=== PATIENT | female | born 1940 | race African-American/Black ===

== ENCOUNTER 2022-09-22 01:10 | Inpatient (IN) | payer OTHER ==
[2022-09-22] VITALS (7 sets, daily range): BP systolic 140–150; BP diastolic 62–80; PULSE 64–71; RESP 16–18; TEMP 96.7–97.4; O2SAT 96–98
[~2022-09-22] VITALS: Ht 162.6 cm; Wt 88.9 kg
[2022-09-22 03:16] LABS: BASOPHILS # (AUTO) 0.1 K/uL (0.00-0.22); BASOPHILS % (AUTO) 1.9 % (0.0-2.0); EOSINOPHILS # (AUTO) 0.3 K/uL (0-0.4); EOSINOPHILS % (AUTO) 4.1 % (0.0-4.0); HEMATOCRIT 26.6 % (36-48); HEMOGLOBIN 9.3 g/dL (12.0-16.0); LYMPHOCYTES # (AUTO) 2.3 K/uL (2.5-16.5); LYMPHOCYTES % (AUTO) 29.8 % (20.5-51.1); MEAN CORPUSCULAR HEMOGLOBIN 28 pg (27-31); MEAN CORPUSCULAR HGB CONC 35 g/dL (33-37); MEAN CORPUSCULAR VOLUME 78.8 fL (80-94); MONOCYTES % (AUTO) 12.7 % (1.7-9.3); NEUTROPHILS # (AUTO) 3.9 K/uL (1.8-7.7); NEUTROPHILS % (AUTO) 51.5 % (42.2-75.2); PLATELET COUNT (AUTO) 335 K/uL (140-450); RED BLOOD CELL COUNT(AUTO) 3.38 MIL/uL (4.20-5.40); RED CELL DISTRIBUTION WIDTH 12.9 % (11.6-13.7); WHITE BLOOD COUNT (AUTO) 7.6 K/uL (4.8-10.8)
[2022-09-22 03:18] LABS: ANION GAP 11.3 (8-16); CALCIUM 8.3 mg/dL (8.5-10.1); CARBON DIOXIDE 25.2 mmol/L (21-32); CHLORIDE 92 mmol/L (98-107); CREATININE 0.7 mg/dL (0.6-1.3); GLUCOSE 105 mg/dL (74-106); POTASSIUM 4.5 mmol/L (3.5-5.1); SODIUM SERUM 124 mmol/L (136-145); UREA NITROGEN, BLOOD 18 mg/dL (7-18)
[2022-09-22 03:19] LABS: MAGNESIUM 1.9 mg/dL (1.8-2.4); PHOSPHORUS 3.6 mg/dL (2.5-4.9)
[2022-09-22] MEDS ORDERED: NACL 0.9% 1,000 ML IV ONE (05:10)
[2022-09-22 07:14] LABS: BILIRUBIN,URINE NEGATIVE (NEGATIVE); BLOOD, URINE TRACE-I (NEGATIVE); COLOR,URINE YELLOW (YELLOW); LEUKOCYTE ESTERASE ,URINE 1+ (NEGATIVE); NITRITE, URINE NEGATIVE (NEGATIVE); PH,URINE 6.5 (5.0-9.0); PROTEIN,URINE NEGATIVE (NEGATIVE); UGLUCOSE NEGATIVE (NEGATIVE); UROBILINOGEN,URINE 0.2 EU/dL (0.2 - 1)
[2022-09-22 07:17] LABS: APPEARANCE,URINE HAZY (CLEAR)
[2022-09-22 07:25] LABS: BACTERIA,URINE >30 (MANY) /HPF (None Seen); SQUAMOUS EPITHELIAL CELL,UR 0-3 (FEW) /LPF (0-3 (FEW))
[2022-09-22] MEDS ORDERED: ONDANSETRON 4 MG/2 ML VIAL IM/IVP PRN (08:15)
[2022-09-22] MEDS ORDERED: HYDROcodone/APAP 7.5/325 MG 1 TAB PO PRN (08:15)
[2022-09-22] MEDS ORDERED: POTASSIUM CHLORIDE 10 MEQ TABER PO PRN (08:15)
[2022-09-22] MEDS ORDERED: guaiFENesin DM 200/20 MG-10 ML 10 ML UDC PO PRN (08:15)
[2022-09-22] MEDS ORDERED: DOCUSATE SODIUM 100 MG GELCAP PO PRN (08:15)
[2022-09-22 08:41] LABS: INR 0.92 (0.8-1.2); PARTIAL THROMBOPLASTIN TIME 28.3 secs (22-35.6); PROTHROMBIN TIME 9.7 secs (10.8-13.4)
[2022-09-22 08:46] LABS: LACTIC ACID 1.1 mmol/L (0.4-2.0)
[2022-09-22 08:52] LABS: FREE T4 (FREE THYROXINE) 0.76 ng/dL (0.76-1.46); MAGNESIUM 1.9 mg/dL (1.8-2.4); PHOSPHORUS 3.4 mg/dL (2.5-4.9); THYROID STIMULATING HORMONE 3.27 uIU/mL (0.34-3.74)
[2022-09-22] MEDS ORDERED: cefTRIAXone 1,000 MG VIAL ONE (10:23)
[2022-09-22] MEDS: NACL 0.9% 1,000 ML IV SCH ×2 (10:36→17:35)
[2022-09-22] MEDS: PANTOPRAZOLE 40 MG TABEC PO SCH (10:36)
[2022-09-22 11:49] LABS: LACTIC ACID 1.1 mmol/L (0.4-2.0)
[2022-09-22] MEDS ORDERED: SODIUM PHOSPHATE 118 ML ENEM RC SCH (18:00)
[2022-09-22] MEDS: ZOLPIDEM 5 MG TAB PO PRN (21:06)
[2022-09-22] MEDS: ACETAMINOPHEN 325 MG TAB PO PRN (21:06)
[2022-09-23] VITALS (9 sets, daily range): BP systolic 138–156; BP diastolic 59–75; PULSE 65–73; RESP 16–18; TEMP 97–98.7; O2SAT 96–98
[2022-09-23] MEDS: NACL 0.9% 1,000 ML IV SCH ×2 (03:44→16:07)
[2022-09-23 06:23] LABS: BASOPHILS # (AUTO) 0.1 K/uL (0.00-0.22); BASOPHILS % (AUTO) 0.8 % (0.0-2.0); EOSINOPHILS # (AUTO) 0.2 K/uL (0-0.4); EOSINOPHILS % (AUTO) 3.2 % (0.0-4.0); HEMATOCRIT 23.7 % (36-48); HEMOGLOBIN 8.3 g/dL (12.0-16.0); LYMPHOCYTES # (AUTO) 1.7 K/uL (2.5-16.5); LYMPHOCYTES % (AUTO) 22.6 % (20.5-51.1); MEAN CORPUSCULAR HEMOGLOBIN 28 pg (27-31); MEAN CORPUSCULAR HGB CONC 35 g/dL (33-37); MEAN CORPUSCULAR VOLUME 79.5 fL (80-94); MONOCYTES # (AUTO) 0.9 K/uL (0.8-1.0); MONOCYTES % (AUTO) 11.9 % (1.7-9.3); NEUTROPHILS # (AUTO) 4.6 K/uL (1.8-7.7); NEUTROPHILS % (AUTO) 61.5 % (42.2-75.2); PLATELET COUNT (AUTO) 288 K/uL (140-450); RED BLOOD CELL COUNT(AUTO) 2.97 MIL/uL (4.20-5.40); RED CELL DISTRIBUTION WIDTH 13.1 % (11.6-13.7); WHITE BLOOD COUNT (AUTO) 7.5 K/uL (4.8-10.8)
[2022-09-23 06:37] LABS: ANION GAP 10.5 (8-16); CALCIUM 7.5 mg/dL (8.5-10.1); CHLORIDE 95 mmol/L (98-107); CREATININE 0.7 mg/dL (0.6-1.3); GLUCOSE 82 mg/dL (74-106); POTASSIUM 4.5 mmol/L (3.5-5.1); SODIUM SERUM 125 mmol/L (136-145); UREA NITROGEN, BLOOD 13 mg/dL (7-18)
[2022-09-23] MEDS: PANTOPRAZOLE 40 MG TABEC PO SCH (09:00)
[2022-09-23 09:06] LABS: T4 (THYROXINE) 6.6 ug/dL (4.5-12.0)
[2022-09-23] MEDS ORDERED: SODIUM PHOSPHATE 118 ML ENEM RC PRN (09:25)
[2022-09-23] MEDS ORDERED: MAGNESIUM HYDROXIDE 2400 MG/30 ML UDC PO PRN (09:25)
[2022-09-23] MEDS ORDERED: MELATONIN 3 MG TAB PO PRN (09:25)
[2022-09-23] MEDS ORDERED: AMLO10TA PO (10:02)
[2022-09-23] MEDS ORDERED: ATEN25TA2 PO (10:02)
[2022-09-23] MEDS ORDERED: MELA1TAB32 PO (10:14)
[2022-09-23] MEDS ORDERED: CRAN450T5 PO (10:14)
[2022-09-23] MEDS ORDERED: NA P133E RC (10:14)
[2022-09-23] MEDS ORDERED: LOSA50TA66 PO (10:14)
[2022-09-23] MEDS ORDERED: SODI100076 PO (10:14)
[2022-09-23] MEDS ORDERED: MAGN400S60 PO (10:14)
[2022-09-23] MEDS: ZOLPIDEM 5 MG TAB PO PRN (21:03)
[2022-09-23] MEDS: ACETAMINOPHEN 325 MG TAB PO PRN (21:03)
[2022-09-24] VITALS (7 sets, daily range): BP systolic 146–159; BP diastolic 59–65; PULSE 63–72; RESP 17–20; TEMP 36.5; O2SAT 95–100
[2022-09-24] MEDS: NACL 0.9% 1,000 ML IV SCH ×4 (00:35→22:55)
[2022-09-24 06:59] LABS: BASOPHILS # (AUTO) 0.1 K/uL (0.00-0.22); BASOPHILS % (AUTO) 1.2 % (0.0-2.0); EOSINOPHILS # (AUTO) 0.2 K/uL (0-0.4); EOSINOPHILS % (AUTO) 3.8 % (0.0-4.0); HEMOGLOBIN 8.4 g/dL (12.0-16.0); LYMPHOCYTES # (AUTO) 1.9 K/uL (2.5-16.5); LYMPHOCYTES % (AUTO) 28.5 % (20.5-51.1); MEAN CORPUSCULAR HEMOGLOBIN 28 pg (27-31); MEAN CORPUSCULAR HGB CONC 35 g/dL (33-37); MEAN CORPUSCULAR VOLUME 80.2 fL (80-94); MONOCYTES # (AUTO) 0.9 K/uL (0.8-1.0); MONOCYTES % (AUTO) 13.1 % (1.7-9.3); NEUTROPHILS # (AUTO) 3.5 K/uL (1.8-7.7); NEUTROPHILS % (AUTO) 53.4 % (42.2-75.2); PLATELET COUNT (AUTO) 267 K/uL (140-450); RED BLOOD CELL COUNT(AUTO) 2.99 MIL/uL (4.20-5.40); RED CELL DISTRIBUTION WIDTH 13.5 % (11.6-13.7); WHITE BLOOD COUNT (AUTO) 6.5 K/uL (4.8-10.8)
[2022-09-24 07:04] LABS: ANION GAP 11.3 (8-16); CALCIUM 7.8 mg/dL (8.5-10.1); CARBON DIOXIDE 25.9 mmol/L (21-32); CHLORIDE 97 mmol/L (98-107); CREATININE 0.6 mg/dL (0.6-1.3); GLUCOSE 94 mg/dL (74-106); POTASSIUM 4.2 mmol/L (3.5-5.1); SODIUM SERUM 130 mmol/L (136-145); UREA NITROGEN, BLOOD 9 mg/dL (7-18)
[2022-09-24] MEDS: LOSARTAN 50 MG TAB PO SCH (09:22)
[2022-09-24] MEDS: amLODIPine 5 MG TAB PO SCH (09:23)
[2022-09-24] MEDS: SODIUM CHLORIDE 1 GM TAB PO SCH (09:23)
[2022-09-24] MEDS: atenoloL 25 MG TAB PO SCH (09:23)
[2022-09-24] MEDS: PANTOPRAZOLE 40 MG TABEC PO SCH (09:24)
[2022-09-24] MEDS ORDERED: POLYVINYL ALCOHOL 1.4% OP 15 ML SOL OP PRN (10:20)
[2022-09-24] MEDS: ACETAMINOPHEN 325 MG TAB PO PRN (20:25)
[2022-09-24] MEDS: ZOLPIDEM 5 MG TAB PO PRN (20:25)
[2022-09-25] VITALS: BP 148/60; PULSE 65; PULSE 66; RESP 18; TEMP 98.7; O2SAT 95
[2022-09-25 04:00] VITALS: BP 140/56; PULSE 60; PULSE 61; PULSE 66; RESP 18; TEMP 97.8; O2SAT 96
[2022-09-25 06:39] LABS: BASOPHILS # (AUTO) 0.1 K/uL (0.00-0.22); BASOPHILS % (AUTO) 0.9 % (0.0-2.0); EOSINOPHILS # (AUTO) 0.3 K/uL (0-0.4); EOSINOPHILS % (AUTO) 4.1 % (0.0-4.0); HEMOGLOBIN 8.3 g/dL (12.0-16.0); LYMPHOCYTES % (AUTO) 28.8 % (20.5-51.1); MEAN CORPUSCULAR HEMOGLOBIN 28 pg (27-31); MEAN CORPUSCULAR HGB CONC 35 g/dL (33-37); MEAN CORPUSCULAR VOLUME 79.7 fL (80-94); MONOCYTES # (AUTO) 0.9 K/uL (0.8-1.0); MONOCYTES % (AUTO) 13.1 % (1.7-9.3); NEUTROPHILS # (AUTO) 3.7 K/uL (1.8-7.7); NEUTROPHILS % (AUTO) 53.1 % (42.2-75.2); PLATELET COUNT (AUTO) 271 K/uL (140-450); RED BLOOD CELL COUNT(AUTO) 3.01 MIL/uL (4.20-5.40); RED CELL DISTRIBUTION WIDTH 13.3 % (11.6-13.7); WHITE BLOOD COUNT (AUTO) 6.9 K/uL (4.8-10.8)
[2022-09-25 07:03] LABS: ANION GAP 12.1 (8-16); CALCIUM 7.7 mg/dL (8.5-10.1); CARBON DIOXIDE 23.2 mmol/L (21-32); CHLORIDE 96 mmol/L (98-107); CREATININE 0.6 mg/dL (0.6-1.3); GLUCOSE 81 mg/dL (74-106); POTASSIUM 4.3 mmol/L (3.5-5.1); SODIUM SERUM 127 mmol/L (136-145); UREA NITROGEN, BLOOD 10 mg/dL (7-18)
[2022-09-25 08:00] VITALS: BP 112/87; PULSE 59; PULSE 68; RESP 18; TEMP 97.6; TEMP 97.8; O2SAT 96
[2022-09-25 08:33] VITALS: PULSE 67; RESP 16; O2SAT 96
[2022-09-25] MEDS: amLODIPine 5 MG TAB PO SCH (08:41)
[2022-09-25] MEDS: PANTOPRAZOLE 40 MG TABEC PO SCH (08:42)
[2022-09-25] MEDS: atenoloL 25 MG TAB PO SCH (08:43)
[2022-09-25] MEDS: SODIUM CHLORIDE 1 GM TAB PO SCH (08:44)
[2022-09-25] MEDS: LOSARTAN 50 MG TAB PO SCH (08:45)
[2022-09-25 12:00] VITALS: BP 158/61; PULSE 59; PULSE 68; RESP 18; TEMP 97.6; O2SAT 98
[2022-09-25] MEDS: NACL 0.9% 1,000 ML IV SCH (12:17)
[2022-09-25] MEDS ORDERED: SODIUM PHOSPHATE 118 ML ENEM RC SCH (14:50)
[2022-09-26] MEDS ORDERED: FUROSEMIDE 20 MG TAB PO SCH (09:00)
== END 2022-09-25 16:25 | DRG 640 ==
LOC: MED 01:10 → MTU 07:54
PROVIDERS: ADMIT Family Medicine; ATTEND Family Medicine
DX: E87.1 Hypo-osmolality and hyponatremia (principal); G93.41 Metabolic encephalopathy; R53.2 Functional quadriplegia; N39.0 Urinary tract infection, site not specified; D63.8 Anemia in other chronic diseases classified elsewhere; I10 Essential (primary) hypertension; Z88.1 Allergy status to other antibiotic agents; Z88.8 Allergy status to other drugs, medicaments and biological substances
CPT/HCPCS: 36415; 71045; 80048; 81001; 82150; 83036; 83605; 83690; 83735; 83880; 83935; 84100; 84300; 84436; 84439; 84443; 84479; 85025; 85610; 85730; 87040; 87081; 87086; 93005; 96361; 96374; 99285; J0696; J7060

== ENCOUNTER 2022-09-29 06:00 | Inpatient (IN) | payer OTHER ==
[~2022-09-29] VITALS: Ht 162.6 cm; Wt 95.3 kg
[2022-09-29] VITALS (9 sets, daily range): BP systolic 145–153; BP diastolic 65–72; PULSE 52–72; RESP 16–18; TEMP 96.9–97; O2SAT 97–100
[~2022-09-29 06:00] MED LIST: AMLO10TA PO; ATEN25TA2 PO; CRAN450T5 PO; LOSA50TA66 PO; MAGN400S60 PO; MELA1TAB32 PO; NA P133E RC; SODI100076 PO
[2022-09-29] MEDS ORDERED: NACL 0.9% 1,000 ML IV ONE ×2 (06:15→09:15)
[2022-09-29 06:57] LABS: BASOPHILS # (AUTO) 0.1 K/uL (0.00-0.22); EOSINOPHILS # (AUTO) 0.3 K/uL (0-0.4); EOSINOPHILS % (AUTO) 3.3 % (0.0-4.0); HEMATOCRIT 27.1 % (36-48); HEMOGLOBIN 9.4 g/dL (12.0-16.0); LYMPHOCYTES # (AUTO) 2.1 K/uL (2.5-16.5); LYMPHOCYTES % (AUTO) 25.8 % (20.5-51.1); MEAN CORPUSCULAR HEMOGLOBIN 27 pg (27-31); MEAN CORPUSCULAR HGB CONC 35 g/dL (33-37); MEAN CORPUSCULAR VOLUME 77.9 fL (80-94); MONOCYTES # (AUTO) 0.7 K/uL (0.8-1.0); MONOCYTES % (AUTO) 8.2 % (1.7-9.3); NEUTROPHILS # (AUTO) 5.1 K/uL (1.8-7.7); NEUTROPHILS % (AUTO) 61.7 % (42.2-75.2); PLATELET COUNT (AUTO) 312 K/uL (140-450); RED BLOOD CELL COUNT(AUTO) 3.48 MIL/uL (4.20-5.40); RED CELL DISTRIBUTION WIDTH 13.5 % (11.6-13.7); WHITE BLOOD COUNT (AUTO) 8.3 K/uL (4.8-10.8)
[2022-09-29 07:18] LABS: ALANINE AMINOTRANSFERASE 21 U/L (12-78); ALBUMIN 3.2 g/dL (3.4-5.0); ALKALINE PHOSPHATASE 91 U/L (50-136); ANION GAP 10.8 (8-16); ASPARTATE AMINOTRANSFERASE 21 U/L (15-37); CALCIUM 8.3 mg/dL (8.5-10.1); CARBON DIOXIDE 25.6 mmol/L (21-32); CHLORIDE 88 mmol/L (98-107); CREATININE 0.7 mg/dL (0.6-1.3); GLUCOSE 96 mg/dL (74-106); POTASSIUM 4.4 mmol/L (3.5-5.1); TOTAL BILIRUBIN 0.3 mg/dL (0.0-1.0); TOTAL PROTEIN, SERUM 6.9 g/dL (6.4-8.2); UREA NITROGEN, BLOOD 12 mg/dL (7-18)
[2022-09-29 07:20] LABS: SODIUM SERUM 120 mmol/L (136-145)
[2022-09-29 08:12] LABS: APPEARANCE,URINE CLEAR (CLEAR); BILIRUBIN,URINE NEGATIVE (NEGATIVE); BLOOD, URINE NEGATIVE (NEGATIVE); COLOR,URINE YELLOW (YELLOW); LEUKOCYTE ESTERASE ,URINE NEGATIVE (NEGATIVE); NITRITE, URINE NEGATIVE (NEGATIVE); PH,URINE 7.5 (5.0-9.0); PROTEIN,URINE TRACE (NEGATIVE); UGLUCOSE NEGATIVE (NEGATIVE); UROBILINOGEN,URINE 0.2 EU/dL (0.2 - 1)
[2022-09-29] MEDS ORDERED: ATEN25TA2 PO (08:23)
[2022-09-29] MEDS ORDERED: CRAN450T5 PO (08:23)
[2022-09-29] MEDS ORDERED: [UNRECOGNIZED DRUG - CODE] PO (08:23)
[2022-09-29] MEDS ORDERED: AMLO10TA88 PO (08:23)
[2022-09-29 12:33] LABS: FREE T4 (FREE THYROXINE) 0.81 ng/dL (0.76-1.46); THYROID STIMULATING HORMONE 3.3 uIU/mL (0.34-3.74)
[2022-09-29] MEDS ORDERED: SODIUM PHOSPHATE 118 ML ENEM RC PRN (13:45)
[2022-09-29] MEDS ORDERED: MAGNESIUM HYDROXIDE 2400 MG/30 ML UDC PO PRN (13:45)
[2022-09-29] MEDS ORDERED: POTASSIUM CHLORIDE 10 MEQ TABER PO PRN (13:50)
[2022-09-29] MEDS ORDERED: ONDANSETRON 4 MG/2 ML VIAL IVP PRN (13:50)
[2022-09-29] MEDS ORDERED: ACETAMINOPHEN 325 MG TAB PO PRN (13:50)
[2022-09-29] MEDS ORDERED: MAG SULF 2000 MG/WATER PREMIX 50 ML IV PRN (13:50)
[2022-09-29 14:18] LABS: INR 0.93 (0.8-1.2); PARTIAL THROMBOPLASTIN TIME 29.7 secs (22-35.6); PROTHROMBIN TIME 9.8 secs (10.8-13.4)
[2022-09-29 14:23] LABS: LACTIC ACID 0.9 mmol/L (0.4-2.0)
[2022-09-29 14:28] LABS: CHOL/HDL RATIO 4.1 (1-4.5); FREE T4 (FREE THYROXINE) 0.84 ng/dL (0.76-1.46); MAGNESIUM 1.7 mg/dL (1.8-2.4); PHOSPHORUS 3.9 mg/dL (2.5-4.9); THYROID STIMULATING HORMONE 3.21 uIU/mL (0.34-3.74)
[2022-09-29] MEDS: NACL 0.9% 1,000 ML IV SCH (14:29)
[2022-09-29] MEDS: PYRIDOXINE 50 MG TAB PO SCH (16:52)
[2022-09-29] MEDS: MELATONIN 3 MG TAB PO SCH (16:53)
[2022-09-29] MEDS ORDERED: NON-FORMULARY ITEM (Melatonin/Pyridoxine HCl (B6) (Melatonin 3 mg Tablet) 1 TAB) PO SCH (17:00)
[2022-09-29] MEDS: HYDROcodone/APAP 7.5/325 MG 1 TAB PO PRN (18:05)
[2022-09-29] MEDS: DOCUSATE SODIUM 100 MG GELCAP PO SCH (23:59)
[2022-09-30] MEDS: NACL 0.9% 1,000 ML IV SCH (03:12)
[2022-09-30 04:00] VITALS: PULSE 59
[2022-09-30 06:15] LABS: BASOPHILS # (AUTO) 0.1 K/uL (0.00-0.22); EOSINOPHILS # (AUTO) 0.3 K/uL (0-0.4); EOSINOPHILS % (AUTO) 4.2 % (0.0-4.0); HEMATOCRIT 25.4 % (36-48); HEMOGLOBIN 8.9 g/dL (12.0-16.0); LYMPHOCYTES # (AUTO) 2.3 K/uL (2.5-16.5); LYMPHOCYTES % (AUTO) 30.9 % (20.5-51.1); MEAN CORPUSCULAR HEMOGLOBIN 28 pg (27-31); MEAN CORPUSCULAR HGB CONC 35 g/dL (33-37); MEAN CORPUSCULAR VOLUME 79.3 fL (80-94); MONOCYTES # (AUTO) 0.6 K/uL (0.8-1.0); MONOCYTES % (AUTO) 7.8 % (1.7-9.3); NEUTROPHILS # (AUTO) 4.1 K/uL (1.8-7.7); NEUTROPHILS % (AUTO) 56.1 % (42.2-75.2); PLATELET COUNT (AUTO) 289 K/uL (140-450); RED CELL DISTRIBUTION WIDTH 13.6 % (11.6-13.7); WHITE BLOOD COUNT (AUTO) 7.4 K/uL (4.8-10.8)
[2022-09-30 06:26] LABS: MAGNESIUM 2.3 mg/dL (1.8-2.4); PHOSPHORUS 3.9 mg/dL (2.5-4.9)
[2022-09-30 06:30] LABS: ALANINE AMINOTRANSFERASE 18 U/L (12-78); ALBUMIN 3.1 g/dL (3.4-5.0); ALKALINE PHOSPHATASE 84 U/L (50-136); ANION GAP 7.8 (8-16); ASPARTATE AMINOTRANSFERASE 18 U/L (15-37); CALCIUM 7.8 mg/dL (8.5-10.1); CARBON DIOXIDE 26.6 mmol/L (21-32); CHLORIDE 90 mmol/L (98-107); CREATININE 0.7 mg/dL (0.6-1.3); GLUCOSE 80 mg/dL (74-106); POTASSIUM 4.4 mmol/L (3.5-5.1); TOTAL BILIRUBIN 0.4 mg/dL (0.0-1.0); TOTAL PROTEIN, SERUM 6.4 g/dL (6.4-8.2); UREA NITROGEN, BLOOD 9 mg/dL (7-18)
[2022-09-30 06:31] LABS: SODIUM SERUM 120 mmol/L (136-145)
[2022-09-30] MEDS ORDERED: NACL 3% 500 ML IV ONE ×3 (06:40→20:00)
[2022-09-30 08:00] VITALS: BP 171/73; PULSE 54; PULSE 60; RESP 17; TEMP 98.8; O2SAT 97
[2022-09-30 08:45] VITALS: BP 147/73; PULSE 60; RESP 18; TEMP 98.2; O2SAT 96
[2022-09-30] MEDS: atenoloL 25 MG TAB PO SCH (08:51)
[2022-09-30] MEDS: DOCUSATE SODIUM 100 MG GELCAP PO SCH ×2 (08:51→21:19)
[2022-09-30] MEDS: amLODIPine 5 MG TAB PO SCH (08:52)
[2022-09-30] MEDS: LOSARTAN 50 MG TAB PO SCH (08:52)
[2022-09-30] MEDS: ENOXAPARIN 40 MG/0.4 ML SYR SUBQ SCH (08:55)
[2022-09-30] MEDS ORDERED: NON-FORMULARY ITEM (Cranberry Fruit (Cranberry) 1 TAB) PO SCH (09:00)
[2022-09-30] MEDS ORDERED: NON-FORMULARY ITEM (Amlodipine Besylate 1 TAB) PO SCH (09:00)
[2022-09-30] MEDS: PANTOPRAZOLE 40 MG INJ VIAL IVP SCH (09:22)
[2022-09-30 12:00] VITALS: BP 155/55; PULSE 59; PULSE 60; RESP 18; TEMP 98.2; O2SAT 99
[2022-09-30 16:00] VITALS: BP 153/63; PULSE 59; PULSE 60; RESP 18; TEMP 98.1; O2SAT 97
[2022-09-30] MEDS: MELATONIN 3 MG TAB PO SCH (17:41)
[2022-09-30] MEDS: PYRIDOXINE 50 MG TAB PO SCH (17:42)
[2022-09-30 20:00] VITALS: BP 149/61; PULSE 65; PULSE 66; RESP 19; TEMP 98.7; O2SAT 98
[2022-10-01] VITALS: BP 140/56; PULSE 62; PULSE 63; RESP 19; TEMP 98.3; O2SAT 98
[2022-10-01] MEDS: HYDROcodone/APAP 7.5/325 MG 1 TAB PO PRN (01:00)
[2022-10-01 04:00] VITALS: BP 145/61; PULSE 61; PULSE 66; RESP 18; TEMP 97.8; O2SAT 98
[2022-10-01 05:22] LABS: CHLORIDE,URINE RANDOM 72 mmol/L (110-250); CREATININE,URINE RANDOM 15 mg/dL (30-125); POTASSIUM,URINE RANDOM 9 mmol/L (12-75); URINE SODIUM, RANDOM 64 mmol/l (40-220)
[2022-10-01 05:40] LABS: BASOPHILS # (AUTO) 0.1 K/uL (0.00-0.22); EOSINOPHILS # (AUTO) 0.2 K/uL (0-0.4); EOSINOPHILS % (AUTO) 3.2 % (0.0-4.0); HEMATOCRIT 22.7 % (36-48); HEMOGLOBIN 7.8 g/dL (12.0-16.0); LYMPHOCYTES # (AUTO) 2.4 K/uL (2.5-16.5); LYMPHOCYTES % (AUTO) 34.1 % (20.5-51.1); MEAN CORPUSCULAR HEMOGLOBIN 28 pg (27-31); MEAN CORPUSCULAR HGB CONC 35 g/dL (33-37); MONOCYTES # (AUTO) 0.7 K/uL (0.8-1.0); MONOCYTES % (AUTO) 10.1 % (1.7-9.3); NEUTROPHILS # (AUTO) 3.6 K/uL (1.8-7.7); NEUTROPHILS % (AUTO) 51.6 % (42.2-75.2); PLATELET COUNT (AUTO) 306 K/uL (140-450); RED BLOOD CELL COUNT(AUTO) 2.83 MIL/uL (4.20-5.40); RED CELL DISTRIBUTION WIDTH 13.2 % (11.6-13.7)
[2022-10-01 05:50] LABS: ALANINE AMINOTRANSFERASE 16 U/L (12-78); ALKALINE PHOSPHATASE 80 U/L (50-136); ANION GAP 10.1 (8-16); ASPARTATE AMINOTRANSFERASE 17 U/L (15-37); CALCIUM 7.8 mg/dL (8.5-10.1); CARBON DIOXIDE 23.3 mmol/L (21-32); CHLORIDE 96 mmol/L (98-107); CREATININE 0.7 mg/dL (0.6-1.3); GLUCOSE 81 mg/dL (74-106); POTASSIUM 4.4 mmol/L (3.5-5.1); SODIUM SERUM 125 mmol/L (136-145); TOTAL BILIRUBIN 0.3 mg/dL (0.0-1.0); TOTAL PROTEIN, SERUM 6.3 g/dL (6.4-8.2); UREA NITROGEN, BLOOD 11 mg/dL (7-18)
[2022-10-01 06:02] LABS: PHOSPHORUS 3.6 mg/dL (2.5-4.9)
[2022-10-01 08:00] VITALS: BP 109/58; PULSE 60; PULSE 69; RESP 18; RESP 20; TEMP 98.2; O2SAT 99
[2022-10-01] MEDS ORDERED: NACL 3% 500 ML IV SCH (08:50)
[2022-10-01] MEDS: PANTOPRAZOLE 40 MG INJ VIAL IVP SCH (08:53)
[2022-10-01] MEDS: atenoloL 25 MG TAB PO SCH (09:00)
[2022-10-01] MEDS: LOSARTAN 50 MG TAB PO SCH (09:00)
[2022-10-01] MEDS: DOCUSATE SODIUM 100 MG GELCAP PO SCH ×2 (09:00→20:26)
[2022-10-01] MEDS: amLODIPine 5 MG TAB PO SCH (09:00)
[2022-10-01] MEDS: ENOXAPARIN 40 MG/0.4 ML SYR SUBQ SCH (09:14)
[2022-10-01 12:00] VITALS: BP 133/44; PULSE 62; RESP 16; TEMP 97.1; O2SAT 97
[2022-10-01 16:00] VITALS: BP 149/56; PULSE 66; PULSE 71; RESP 18; TEMP 98.4; O2SAT 100
[2022-10-01] MEDS: PYRIDOXINE 50 MG TAB PO SCH (17:39)
[2022-10-01] MEDS: MELATONIN 3 MG TAB PO SCH (17:39)
[2022-10-01 20:00] VITALS: BP 141/42; PULSE 74; RESP 17; TEMP 98.8; O2SAT 95
[2022-10-01] MEDS ORDERED: NACL 3% 500 ML IV ONE (21:55)
[2022-10-02] VITALS (7 sets, daily range): BP systolic 136–159; BP diastolic 53–65; PULSE 63–72; RESP 16–19; TEMP 97.5–98.9; O2SAT 95–98
[2022-10-02 06:46] LABS: BASOPHILS # (AUTO) 0.1 K/uL (0.00-0.22); BASOPHILS % (AUTO) 1.3 % (0.0-2.0); EOSINOPHILS # (AUTO) 0.2 K/uL (0-0.4); EOSINOPHILS % (AUTO) 3.1 % (0.0-4.0); HEMOGLOBIN 7.9 g/dL (12.0-16.0); LYMPHOCYTES # (AUTO) 1.9 K/uL (2.5-16.5); LYMPHOCYTES % (AUTO) 33.7 % (20.5-51.1); MEAN CORPUSCULAR HEMOGLOBIN 27 pg (27-31); MEAN CORPUSCULAR HGB CONC 34 g/dL (33-37); MEAN CORPUSCULAR VOLUME 80.1 fL (80-94); MONOCYTES # (AUTO) 0.7 K/uL (0.8-1.0); MONOCYTES % (AUTO) 12.8 % (1.7-9.3); NEUTROPHILS # (AUTO) 2.8 K/uL (1.8-7.7); NEUTROPHILS % (AUTO) 49.1 % (42.2-75.2); PLATELET COUNT (AUTO) 294 K/uL (140-450); RED BLOOD CELL COUNT(AUTO) 2.87 MIL/uL (4.20-5.40); RED CELL DISTRIBUTION WIDTH 13.7 % (11.6-13.7); WHITE BLOOD COUNT (AUTO) 5.7 K/uL (4.8-10.8)
[2022-10-02 06:58] LABS: ALANINE AMINOTRANSFERASE 15 U/L (12-78); ALBUMIN 2.8 g/dL (3.4-5.0); ALKALINE PHOSPHATASE 75 U/L (50-136); ANION GAP 10.9 (8-16); ASPARTATE AMINOTRANSFERASE 17 U/L (15-37); CALCIUM 7.8 mg/dL (8.5-10.1); CARBON DIOXIDE 22.6 mmol/L (21-32); CHLORIDE 98 mmol/L (98-107); CREATININE 0.7 mg/dL (0.6-1.3); GLUCOSE 89 mg/dL (74-106); POTASSIUM 4.5 mmol/L (3.5-5.1); SODIUM SERUM 127 mmol/L (136-145); TOTAL BILIRUBIN 0.2 mg/dL (0.0-1.0); UREA NITROGEN, BLOOD 11 mg/dL (7-18)
[2022-10-02 07:08] LABS: MAGNESIUM 1.8 mg/dL (1.8-2.4)
[2022-10-02] MEDS: PANTOPRAZOLE 40 MG INJ VIAL IVP SCH (09:23)
[2022-10-02] MEDS: LOSARTAN 50 MG TAB PO SCH (09:23)
[2022-10-02] MEDS: DOCUSATE SODIUM 100 MG GELCAP PO SCH ×2 (09:23→20:25)
[2022-10-02] MEDS: amLODIPine 5 MG TAB PO SCH (09:24)
[2022-10-02] MEDS: atenoloL 25 MG TAB PO SCH (09:24)
[2022-10-02] MEDS: ENOXAPARIN 40 MG/0.4 ML SYR SUBQ SCH (09:26)
[2022-10-02] MEDS ORDERED: POLYVINYL ALCOHOL 1.4% OP 15 ML SOL OP PRN (13:35)
[2022-10-02] MEDS: REFRESH OP PRN (17:42)
[2022-10-02] MEDS: MELATONIN 3 MG TAB PO SCH (18:06)
[2022-10-02] MEDS: PYRIDOXINE 50 MG TAB PO SCH (18:07)
[2022-10-03] MEDS: REFRESH OP PRN (00:37)
[2022-10-03] MEDS: HYDROcodone/APAP 7.5/325 MG 1 TAB PO PRN (02:25)
[2022-10-03 04:00] VITALS: BP 139/60; PULSE 67; RESP 18; TEMP 98.7; O2SAT 99
[2022-10-03 05:19] LABS: BASOPHILS # (AUTO) 0.1 K/uL (0.00-0.22); BASOPHILS % (AUTO) 1.3 % (0.0-2.0); EOSINOPHILS # (AUTO) 0.3 K/uL (0-0.4); EOSINOPHILS % (AUTO) 4.4 % (0.0-4.0); HEMATOCRIT 21.3 % (36-48); HEMOGLOBIN 7.5 g/dL (12.0-16.0); LYMPHOCYTES # (AUTO) 2.1 K/uL (2.5-16.5); LYMPHOCYTES % (AUTO) 30.9 % (20.5-51.1); MEAN CORPUSCULAR HEMOGLOBIN 28 pg (27-31); MEAN CORPUSCULAR HGB CONC 35 g/dL (33-37); MEAN CORPUSCULAR VOLUME 79.4 fL (80-94); MONOCYTES # (AUTO) 0.8 K/uL (0.8-1.0); MONOCYTES % (AUTO) 12.2 % (1.7-9.3); NEUTROPHILS # (AUTO) 3.5 K/uL (1.8-7.7); NEUTROPHILS % (AUTO) 51.2 % (42.2-75.2); PLATELET COUNT (AUTO) 295 K/uL (140-450); RED BLOOD CELL COUNT(AUTO) 2.68 MIL/uL (4.20-5.40); RED CELL DISTRIBUTION WIDTH 13.8 % (11.6-13.7); WHITE BLOOD COUNT (AUTO) 6.9 K/uL (4.8-10.8)
[2022-10-03 05:45] LABS: ANION GAP 8.7 (8-16); CALCIUM 7.9 mg/dL (8.5-10.1); CARBON DIOXIDE 23.6 mmol/L (21-32); CHLORIDE 96 mmol/L (98-107); CREATININE 0.7 mg/dL (0.6-1.3); GLUCOSE 88 mg/dL (74-106); POTASSIUM 4.3 mmol/L (3.5-5.1); SODIUM SERUM 124 mmol/L (136-145); UREA NITROGEN, BLOOD 10 mg/dL (7-18)
[2022-10-03 05:59] LABS: MAGNESIUM 1.7 mg/dL (1.8-2.4); PHOSPHORUS 3.3 mg/dL (2.5-4.9)
[2022-10-03] MEDS ORDERED: NACL PO (07:16)
[2022-10-03] MEDS ORDERED: TOLV15TA PO (07:17)
[2022-10-03 08:00] VITALS: BP 146/71; PULSE 61; RESP 18; TEMP 97.3; O2SAT 95; O2SAT 96
[2022-10-03] MEDS: DOCUSATE SODIUM 100 MG GELCAP PO SCH (09:00)
[2022-10-03] MEDS: amLODIPine 5 MG TAB PO SCH (09:52)
[2022-10-03] MEDS: LOSARTAN 50 MG TAB PO SCH (09:53)
[2022-10-03] MEDS: atenoloL 25 MG TAB PO SCH (09:53)
[2022-10-03] MEDS: ENOXAPARIN 40 MG/0.4 ML SYR SUBQ SCH (09:55)
[2022-10-03] MEDS: PANTOPRAZOLE 40 MG INJ VIAL IVP SCH (09:57)
[2022-10-03 16:00] VITALS: BP 122/70; PULSE 65; RESP 19; TEMP 97.8; O2SAT 100
[2022-10-03] MEDS: MELATONIN 3 MG TAB PO SCH (17:00)
[2022-10-03] MEDS: PYRIDOXINE 50 MG TAB PO SCH (17:00)
[2022-10-03] MEDS ORDERED: SODIUM CHLORIDE 1 GM TAB PO SCH (21:00)
[2022-10-04] MEDS ORDERED: POLYETHYLENE GLYCOL 17 GM/PKT PO SCH (09:00)
== END 2022-10-03 19:00 | DRG 643 ==
LOC: MED 06:00 → MTU 09:17
DX: E22.2 Syndrome of inappropriate secretion of antidiuretic hormone (principal); R53.2 Functional quadriplegia; E44.1 Mild protein-calorie malnutrition; N39.0 Urinary tract infection, site not specified; I10 Essential (primary) hypertension; E66.9 Obesity, unspecified; H50.9 Unspecified strabismus; D50.9 Iron deficiency anemia, unspecified; Z68.36 Body mass index [BMI] 36.0-36.9, adult; Z88.1 Allergy status to other antibiotic agents; Z88.8 Allergy status to other drugs, medicaments and biological substances; Z79.899 Other long term (current) drug therapy
CPT/HCPCS: 36415; 71045; 80048; 80053; 81003; 82150; 82436; 82533; 82570; 82728; 83036; 83540; 83605; 83690; 83735; 83880; 83935; 84100; 84133; 84295; 84300; 84439; 84443; 84484; 84550; 85025; 85610; 85730; 87081; 93005; 97110; 97112; 97116; 97163-GP; 97530; 99285; C9113; J1650; J3475; J3490